=== PATIENT | male | born 1940 | race Caucasian/White ===

== ENCOUNTER 2017-11-11 21:47 | Inpatient (IN) | payer MEDICARE, BC ==
[2017-11-11 23:13] LABS: ADD MAN DIFF? NO
[2017-11-11 23:19] LABS: WHITE BLOOD COUNT 6.9 10^3/ul (4.8-10.8)
[2017-11-11 23:19] LABS: BASOPHILS % 0.6 % (0.0-2.0); EOSINOPHILS # 0.3 10^3/ul (0.0-0.5); EOSINOPHILS % 3.8 % (0.0-7.0); HEMATOCRIT 46.8 % (42.0-52.0); HEMOGLOBIN 16.1 g/dl (14.0-18.0); LYMPHOCYTES # 1.6 10^3/ul (0.8-2.9); LYMPHOCYTES % 23.1 % (15.0-51.0); MEAN CORPUSCULAR HGB CONC 34.4 g/dl (32.0-37.0); MEAN PLATELET VOLUME 10.1 fl (7.4-10.4); MONOCYTES % 14.7 % (0.0-11.0); NEUTROPHILS % 57.5 % (39.0-77.0); PLATELET COUNT 150 10^3/UL (140-415); RED BLOOD COUNT 5.03 10^6/ul (4.70-6.10); RED CELL DISTRIBUTION WIDTH 12.9 % (11.5-14.5)
[2017-11-11 23:40] LABS: PROTIME 13.3 Sec (11.9-14.9)
[2017-11-11 23:42] LABS: PARTIAL THROMBOPLASTIN TIME 35.4 Sec (25.0-35.0)
[2017-11-11 23:45] LABS: ADD UMIC NO; UR ASCORBIC ACID 20 mg/dL (NEGATIVE); UR BILIRUBIN (Dip) NEGATIVE (NEGATIVE); UR BLOOD (Dip) NEGATIVE (NEGATIVE); UR CLARITY CLEAR (CLEAR); UR COLOR STRAW (YELLOW); UR GLUCOSE (Dip) NEGATIVE (NEGATIVE); UR KETONES (Dip) NEGATIVE (NEGATIVE); UR LEUKOCYTE ESTERASE (Dip) NEGATIVE Leu/ul (NEGATIVE); UR NITRITE (Dip) NEGATIVE (NEGATIVE); UR SPECIFIC GRAVITY (Dip) 1.008 (1.003-1.030); UR TOTAL PROTEIN (Dip) NEGATIVE (NEGATIVE); UR UROBILINOGEN (Dip) NEGATIVE (NEGATIVE)
[2017-11-11 23:47] LABS: ANION GAP 13 (8-16); BLOOD UREA NITROGEN 25 mg/dl (7-20); CALCIUM 9.7 mg/dl (8.4-10.2); CARBON DIOXIDE 27 mmol/L (21-31); CHLORIDE 105 mmol/L (97-110); CHOLESTEROL 165 mg/dl (100-200); CREATININE 1.26 mg/dl (0.61-1.24); GLUCOSE 117 mg/dl (70-220); HDL CHOLESTEROL 33 mg/dl (31-75); LDL CHOLESTEROL,CALCULATED 86 mg/dl; POTASSIUM 3.7 mmol/L (3.5-5.1); SODIUM 141 mmol/L (135-144); TRIGLYCERIDES 231 mg/dl (0-149)
[2017-11-11 23:56] LABS: TROPONIN-I < 0.012 ng/ml (0.000-0.120)
[2017-11-12] LABS: AMPHETAMINE/METHAMPHETAMINE Negative (NEGATIVE); BARBITURATES Negative (NEGATIVE); BENZODIAZEPINES Negative (NEGATIVE); CANNABINOIDS Negative (NEGATIVE); COCAINE Negative (NEGATIVE); OPIATES Negative (NEGATIVE)
[2017-11-12] MEDS ORDERED: ACETAMINOPHEN 325 MG TAB PO (03:00)
[2017-11-12] MEDS ORDERED: ONDANSETRON 4 MG INJ IV (03:00)
[2017-11-12] MEDS: DOXYCYCLINE 100 MG TAB PO (08:57)
[2017-11-12] MEDS: DOCUSATE SODIUM 100 MG CAP PO ×2 (08:58→21:02)
[2017-11-12] MEDS: AMLODIPINE 5 MG TAB PO (08:58)
[2017-11-12] MEDS: CITALOPRAM 20 MG TAB PO (08:58)
[2017-11-12] MEDS: ASCORBIC ACID 500 MG TAB PO (08:58)
[2017-11-12] MEDS: BENAZEPRIL 40 MG TAB PO (08:59)
[2017-11-12] MEDS: DUTASTERIDE 0.5 MG CAP PO (10:51)
[2017-11-12] MEDS: CLOPIDOGREL 75 MG TAB PO (14:30)
[2017-11-12] MEDS: ROPINIROLE 1 MG TAB PO (21:02)
[2017-11-12] MEDS: RANITIDINE 150 MG TAB PO (21:02)
[2017-11-12] MEDS: ATORVASTATIN 10 MG TAB PO (21:02)
[2017-11-13 05:08] LABS: ADD MAN DIFF? NO
[2017-11-13 05:14] LABS: BASOPHILS % 0.6 % (0.0-2.0); EOSINOPHILS # 0.2 10^3/ul (0.0-0.5); EOSINOPHILS % 3.5 % (0.0-7.0); HEMOGLOBIN 15.2 g/dl (14.0-18.0); LYMPHOCYTES # 1.6 10^3/ul (0.8-2.9); LYMPHOCYTES % 22.9 % (15.0-51.0); MEAN CORPUSCULAR HEMOGLOBIN 31.7 pg (29.0-33.0); MEAN CORPUSCULAR HGB CONC 33.8 g/dl (32.0-37.0); MEAN CORPUSCULAR VOLUME 93.8 fl (82.0-101.0); MEAN PLATELET VOLUME 10.4 fl (7.4-10.4); MONOCYTE # 1.1 10^3/ul (0.3-0.9); MONOCYTES % 15.5 % (0.0-11.0); NEUTROPHIL # 3.9 10^3/ul (1.6-7.5); NEUTROPHILS % 57.2 % (39.0-77.0); PLATELET COUNT 141 10^3/UL (140-415); RED CELL DISTRIBUTION WIDTH 13.1 % (11.5-14.5)
[2017-11-13 05:14] LABS: WHITE BLOOD COUNT 6.8 10^3/ul (4.8-10.8)
[2017-11-13 05:48] LABS: ALANINE AMINOTRANSFERASE 37 IU/L (13-69); ALBUMIN 3.6 g/dl (3.3-4.9); ALBUMIN/GLOBULIN RATIO 1.33; ALKALINE PHOSPHATASE 64 IU/L (42-121); ANION GAP 12 (8-16); ASPARTATE AMINO TRANSFERASE 31 IU/L (15-46); BILIRUBIN,INDIRECT 0.5 mg/dl (0-1.1); BILIRUBIN,TOTAL 0.5 mg/dl (0.2-1.3); BLOOD UREA NITROGEN 26 mg/dl (7-20); CARBON DIOXIDE 28 mmol/L (21-31); CHLORIDE 107 mmol/L (97-110); CREATININE 1.04 mg/dl (0.61-1.24); GLUCOSE 109 mg/dl (70-220); POTASSIUM 4.1 mmol/L (3.5-5.1); SODIUM 143 mmol/L (135-144); TOTAL PROTEIN 6.3 g/dl (6.1-8.1)
[2017-11-13 06:50] LABS: FOLATE > 20.0 ng/ml (2.8-20.0)
[2017-11-13] MEDS: DUTASTERIDE 0.5 MG CAP PO (07:53)
[2017-11-13] MEDS: CITALOPRAM 20 MG TAB PO (07:54)
[2017-11-13] MEDS: ASCORBIC ACID 500 MG TAB PO (07:54)
[2017-11-13] MEDS: CLOPIDOGREL 75 MG TAB PO (07:54)
[2017-11-13] MEDS: BENAZEPRIL 40 MG TAB PO (07:54)
[2017-11-13] MEDS: DOCUSATE SODIUM 100 MG CAP PO ×2 (07:54→20:24)
[2017-11-13] MEDS: AMLODIPINE 5 MG TAB PO (07:54)
[2017-11-13] MEDS: DOXYCYCLINE 100 MG TAB PO (07:54)
[2017-11-13] MEDS: ROPINIROLE 1 MG TAB PO (20:24)
[2017-11-13] MEDS: RANITIDINE 150 MG TAB PO (20:24)
[2017-11-13] MEDS: ATORVASTATIN 10 MG TAB PO (20:24)
[2017-11-14] MEDS: CITALOPRAM 20 MG TAB PO (08:38)
[2017-11-14] MEDS: ASCORBIC ACID 500 MG TAB PO (08:38)
[2017-11-14] MEDS: CLOPIDOGREL 75 MG TAB PO (08:38)
[2017-11-14] MEDS: AMLODIPINE 5 MG TAB PO (08:39)
[2017-11-14] MEDS: DOXYCYCLINE 100 MG TAB PO (08:39)
[2017-11-14] MEDS: BENAZEPRIL 40 MG TAB PO (08:39)
[2017-11-14] MEDS: DOCUSATE SODIUM 100 MG CAP PO ×2 (08:39→20:43)
[2017-11-14] MEDS: DUTASTERIDE 0.5 MG CAP PO (08:42)
[2017-11-14] MEDS: ROPINIROLE 1 MG TAB PO (20:43)
[2017-11-14] MEDS: RANITIDINE 150 MG TAB PO (20:43)
== END 2017-11-14 22:15 | DRG 66 ==
LOC: E/R 21:47 → 6WM 11-12 02:37
DX: I63.9 Cerebral infarction, unspecified (principal); J44.9 Chronic obstructive pulmonary disease, unspecified; I10 Essential (primary) hypertension; F32.9 Major depressive disorder, single episode, unspecified; K21.9 Gastro-esophageal reflux disease without esophagitis; N40.0 Benign prostatic hyperplasia without lower urinary tract symptoms; E78.5 Hyperlipidemia, unspecified; R41.3 Other amnesia; G25.81 Restless legs syndrome; M48.061 Spinal stenosis, lumbar region without neurogenic claudication; E66.9 Obesity, unspecified; Z68.32 Body mass index [BMI] 32.0-32.9, adult; Z79.02 Long term (current) use of antithrombotics/antiplatelets; Z87.891 Personal history of nicotine dependence; Z86.73 Personal history of transient ischemic attack (TIA), and cerebral infarction without residual deficits
CPT/HCPCS: 36415; 70450; 70544; 70549; 70551; 71045; 80048; 80053; 80061; 80307; 81003; 82607; 82746; 82962; 83036; 84443; 84484; 85025; 85610; 85730; 92610; 93005; 93306; 93880; 95819; 97161; 97167; 99285-25

== ENCOUNTER 2017-11-14 22:00 | Inpatient (IN) | payer MEDICARE, BC ==
[2017-11-15] MEDS ORDERED: LACTULOSE 30ML CUP PO (03:30)
[2017-11-15] MEDS ORDERED: BISACODYL 10 MG SUPP PR (03:30)
[2017-11-15] MEDS ORDERED: MAGNESIUM HYDROXIDE 30ML CUP PO (03:30)
[2017-11-15] MEDS ORDERED: ACETAMINOPHEN 325 MG TAB PO (03:30)
[2017-11-15 05:59] LABS: ADD UMIC NO; UR ASCORBIC ACID 40 mg/dL (NEGATIVE); UR BILIRUBIN (Dip) NEGATIVE (NEGATIVE); UR BLOOD (Dip) NEGATIVE (NEGATIVE); UR CLARITY CLEAR (CLEAR); UR COLOR YELLOW (YELLOW); UR GLUCOSE (Dip) NEGATIVE (NEGATIVE); UR KETONES (Dip) NEGATIVE (NEGATIVE); UR LEUKOCYTE ESTERASE (Dip) NEGATIVE Leu/ul (NEGATIVE); UR NITRITE (Dip) NEGATIVE (NEGATIVE); UR SPECIFIC GRAVITY (Dip) 1.019 (1.003-1.030); UR TOTAL PROTEIN (Dip) NEGATIVE (NEGATIVE); UR UROBILINOGEN (Dip) NEGATIVE (NEGATIVE)
[2017-11-15] MEDS: DOXYCYCLINE 100 MG TAB PO (09:16)
[2017-11-15] MEDS: CLOPIDOGREL 75 MG TAB PO (09:16)
[2017-11-15] MEDS: DUTASTERIDE 0.5 MG CAP PO (09:16)
[2017-11-15] MEDS: DOCUSATE SODIUM 100 MG CAP PO ×2 (09:16→20:43)
[2017-11-15] MEDS: BENAZEPRIL 40 MG TAB PO (09:16)
[2017-11-15] MEDS: ASCORBIC ACID 500 MG TAB PO (09:17)
[2017-11-15] MEDS: AMLODIPINE 5 MG TAB PO (09:17)
[2017-11-15] MEDS: CITALOPRAM 20 MG TAB PO (09:17)
[2017-11-15] MEDS: RANITIDINE 150 MG TAB PO (20:40)
[2017-11-15] MEDS: ATORVASTATIN 10 MG TAB PO (20:40)
[2017-11-15] MEDS: ROPINIROLE 1 MG TAB PO (20:40)
[2017-11-15] MEDS: FISH OIL 1,000 MG CAP PO (20:40)
[2017-11-15] MEDS: SENNA TAB PO (20:43)
[2017-11-16] MEDS: FISH OIL 1,000 MG CAP PO ×3 (09:00→20:40)
[2017-11-16] MEDS: DOCUSATE SODIUM 100 MG CAP PO ×2 (09:00→20:40)
[2017-11-16] MEDS: CYANOCOBALAMIN 500 MCG TAB PO (09:00)
[2017-11-16] MEDS: DUTASTERIDE 0.5 MG CAP PO (09:18)
[2017-11-16] MEDS: DOXYCYCLINE 100 MG TAB PO (09:18)
[2017-11-16] MEDS: BENAZEPRIL 40 MG TAB PO (09:18)
[2017-11-16] MEDS: ASCORBIC ACID 500 MG TAB PO (09:18)
[2017-11-16] MEDS: CHOLECALCIFEROL 2,000 UNIT CAP PO (09:18)
[2017-11-16] MEDS: CLOPIDOGREL 75 MG TAB PO (09:20)
[2017-11-16] MEDS: CITALOPRAM 20 MG TAB PO (09:20)
[2017-11-16] MEDS: AMLODIPINE 5 MG TAB PO (09:20)
[2017-11-16] MEDS: ROPINIROLE 1 MG TAB PO (20:40)
[2017-11-16] MEDS: SENNA TAB PO (20:40)
[2017-11-16] MEDS: RANITIDINE 150 MG TAB PO (20:40)
[2017-11-16] MEDS: ATORVASTATIN 10 MG TAB PO (20:40)
[2017-11-16] MEDS: ZOLPIDEM 5 MG TAB PO (21:21)
[2017-11-17 06:20] LABS: ADD MAN DIFF? NO
[2017-11-17 06:30] LABS: BASOPHILS % 0.6 % (0.0-2.0); EOSINOPHILS # 0.2 10^3/ul (0.0-0.5); EOSINOPHILS % 3.4 % (0.0-7.0); HEMATOCRIT 46.3 % (42.0-52.0); HEMOGLOBIN 15.5 g/dl (14.0-18.0); LYMPHOCYTES # 1.3 10^3/ul (0.8-2.9); LYMPHOCYTES % 19.6 % (15.0-51.0); MEAN CORPUSCULAR HEMOGLOBIN 31.6 pg (29.0-33.0); MEAN CORPUSCULAR HGB CONC 33.5 g/dl (32.0-37.0); MEAN CORPUSCULAR VOLUME 94.3 fl (82.0-101.0); MEAN PLATELET VOLUME 10.3 fl (7.4-10.4); MONOCYTE # 0.9 10^3/ul (0.3-0.9); MONOCYTES % 14.1 % (0.0-11.0); PLATELET COUNT 158 10^3/UL (140-415); RED BLOOD COUNT 4.91 10^6/ul (4.70-6.10); RED CELL DISTRIBUTION WIDTH 13.3 % (11.5-14.5)
[2017-11-17 06:30] LABS: WHITE BLOOD COUNT 6.5 10^3/ul (4.8-10.8)
[2017-11-17 06:56] LABS: ALANINE AMINOTRANSFERASE 34 IU/L (13-69); ALBUMIN 3.9 g/dl (3.3-4.9); ALBUMIN/GLOBULIN RATIO 1.44; ALKALINE PHOSPHATASE 66 IU/L (42-121); ANION GAP 13 (8-16); ASPARTATE AMINO TRANSFERASE 27 IU/L (15-46); BILIRUBIN,INDIRECT 0.6 mg/dl (0-1.1); BILIRUBIN,TOTAL 0.6 mg/dl (0.2-1.3); BLOOD UREA NITROGEN 25 mg/dl (7-20); CALCIUM 9.1 mg/dl (8.4-10.2); CARBON DIOXIDE 24 mmol/L (21-31); CHLORIDE 109 mmol/L (97-110); CREATININE 0.91 mg/dl (0.61-1.24); GLUCOSE 103 mg/dl (70-220); MAGNESIUM 2.1 mg/dl (1.7-2.5); POTASSIUM 3.8 mmol/L (3.5-5.1); SODIUM 142 mmol/L (135-144); TOTAL PROTEIN 6.6 g/dl (6.1-8.1)
[2017-11-17] MEDS: DOXYCYCLINE 100 MG TAB PO (09:00)
[2017-11-17] MEDS: AMLODIPINE 5 MG TAB PO (09:01)
[2017-11-17] MEDS: CITALOPRAM 20 MG TAB PO (09:01)
[2017-11-17] MEDS: CYANOCOBALAMIN 500 MCG TAB PO (09:01)
[2017-11-17] MEDS: DOCUSATE SODIUM 100 MG CAP PO ×2 (09:01→21:21)
[2017-11-17] MEDS: ASCORBIC ACID 500 MG TAB PO (09:01)
[2017-11-17] MEDS: FISH OIL 1,000 MG CAP PO ×2 (09:01→21:21)
[2017-11-17] MEDS: BENAZEPRIL 40 MG TAB PO (09:01)
[2017-11-17] MEDS: DUTASTERIDE 0.5 MG CAP PO (09:02)
[2017-11-17] MEDS: CHOLECALCIFEROL 2,000 UNIT CAP PO (09:02)
[2017-11-17] MEDS: CLOPIDOGREL 75 MG TAB PO (09:02)
[2017-11-17] MEDS: SENNA TAB PO (21:00)
[2017-11-17] MEDS: ROPINIROLE 1 MG TAB PO (21:17)
[2017-11-17] MEDS: ATORVASTATIN 10 MG TAB PO (21:21)
[2017-11-17] MEDS: RANITIDINE 150 MG TAB PO (21:21)
[2017-11-18] MEDS: ZOLPIDEM 5 MG TAB PO ×2 (00:12→21:08)
[2017-11-18] MEDS: CYANOCOBALAMIN 500 MCG TAB PO (08:38)
[2017-11-18] MEDS: DOCUSATE SODIUM 100 MG CAP PO ×2 (08:39→21:09)
[2017-11-18] MEDS: BENAZEPRIL 40 MG TAB PO (08:39)
[2017-11-18] MEDS: FISH OIL 1,000 MG CAP PO ×2 (08:39→21:09)
[2017-11-18] MEDS: DUTASTERIDE 0.5 MG CAP PO (08:39)
[2017-11-18] MEDS: CLOPIDOGREL 75 MG TAB PO (08:39)
[2017-11-18] MEDS: ASCORBIC ACID 500 MG TAB PO (08:39)
[2017-11-18] MEDS: CITALOPRAM 20 MG TAB PO (08:39)
[2017-11-18] MEDS: AMLODIPINE 5 MG TAB PO (08:40)
[2017-11-18] MEDS: CHOLECALCIFEROL 2,000 UNIT CAP PO (08:54)
[2017-11-18] MEDS ORDERED: ZOLPIDEM 5 MG TAB PO (21:00)
[2017-11-18] MEDS: ROPINIROLE 1 MG TAB PO (21:09)
[2017-11-18] MEDS: ATORVASTATIN 10 MG TAB PO (21:09)
[2017-11-18] MEDS: SENNA TAB PO (21:09)
[2017-11-18] MEDS: RANITIDINE 150 MG TAB PO (21:09)
[2017-11-19] MEDS: ZOLPIDEM 5 MG TAB PO (01:14)
[2017-11-19] MEDS: FISH OIL 1,000 MG CAP PO ×2 (09:07→21:02)
[2017-11-19] MEDS: BENAZEPRIL 40 MG TAB PO (09:07)
[2017-11-19] MEDS: ASCORBIC ACID 500 MG TAB PO (09:07)
[2017-11-19] MEDS: CYANOCOBALAMIN 500 MCG TAB PO (09:08)
[2017-11-19] MEDS: CHOLECALCIFEROL 2,000 UNIT CAP PO (09:08)
[2017-11-19] MEDS: AMLODIPINE 5 MG TAB PO (09:08)
[2017-11-19] MEDS: CITALOPRAM 20 MG TAB PO (09:08)
[2017-11-19] MEDS: CLOPIDOGREL 75 MG TAB PO (09:08)
[2017-11-19] MEDS: DOCUSATE SODIUM 100 MG CAP PO ×2 (09:08→21:02)
[2017-11-19] MEDS: DUTASTERIDE 0.5 MG CAP PO (09:08)
[2017-11-19] MEDS: ROPINIROLE 1 MG TAB PO (21:02)
[2017-11-19] MEDS: SENNA TAB PO (21:02)
[2017-11-19] MEDS: RANITIDINE 150 MG TAB PO (21:02)
[2017-11-19] MEDS: ATORVASTATIN 10 MG TAB PO (21:02)
[2017-11-20] MEDS: FISH OIL 1,000 MG CAP PO ×2 (09:51→20:45)
[2017-11-20] MEDS: CITALOPRAM 20 MG TAB PO (09:51)
[2017-11-20] MEDS: DOCUSATE SODIUM 100 MG CAP PO ×2 (09:52→20:45)
[2017-11-20] MEDS: CLOPIDOGREL 75 MG TAB PO (09:52)
[2017-11-20] MEDS: AMLODIPINE 5 MG TAB PO (09:52)
[2017-11-20] MEDS: DUTASTERIDE 0.5 MG CAP PO (09:52)
[2017-11-20] MEDS: BENAZEPRIL 40 MG TAB PO (09:52)
[2017-11-20] MEDS: ASCORBIC ACID 500 MG TAB PO (09:52)
[2017-11-20] MEDS: CHOLECALCIFEROL 2,000 UNIT CAP PO (09:52)
[2017-11-20] MEDS: CYANOCOBALAMIN 500 MCG TAB PO (09:52)
[2017-11-20] MEDS: SENNA TAB PO (20:45)
[2017-11-20] MEDS: ROPINIROLE 1 MG TAB PO (20:45)
[2017-11-20] MEDS: RANITIDINE 150 MG TAB PO (20:45)
[2017-11-20] MEDS: ATORVASTATIN 10 MG TAB PO (20:45)
[2017-11-21 07:08] LABS: ALANINE AMINOTRANSFERASE 40 IU/L (13-69); ALBUMIN 3.5 g/dl (3.3-4.9); ALBUMIN/GLOBULIN RATIO 1.16; ALKALINE PHOSPHATASE 67 IU/L (42-121); ANION GAP 12 (8-16); ASPARTATE AMINO TRANSFERASE 26 IU/L (15-46); BILIRUBIN,INDIRECT 0.6 mg/dl (0-1.1); BILIRUBIN,TOTAL 0.6 mg/dl (0.2-1.3); BLOOD UREA NITROGEN 24 mg/dl (7-20); CALCIUM 9.1 mg/dl (8.4-10.2); CARBON DIOXIDE 27 mmol/L (21-31); CHLORIDE 107 mmol/L (97-110); CREATININE 1.02 mg/dl (0.61-1.24); GLUCOSE 104 mg/dl (70-220); SODIUM 142 mmol/L (135-144); TOTAL PROTEIN 6.5 g/dl (6.1-8.1)
[2017-11-21] MEDS: CYANOCOBALAMIN 500 MCG TAB PO (08:39)
[2017-11-21] MEDS: CHOLECALCIFEROL 2,000 UNIT CAP PO (08:39)
[2017-11-21] MEDS: ASCORBIC ACID 500 MG TAB PO (08:39)
[2017-11-21] MEDS: DUTASTERIDE 0.5 MG CAP PO (08:39)
[2017-11-21] MEDS: FISH OIL 1,000 MG CAP PO ×2 (08:39→20:06)
[2017-11-21] MEDS: BENAZEPRIL 40 MG TAB PO (08:39)
[2017-11-21] MEDS: AMLODIPINE 5 MG TAB PO (08:39)
[2017-11-21] MEDS: CLOPIDOGREL 75 MG TAB PO (08:39)
[2017-11-21] MEDS: DOCUSATE SODIUM 100 MG CAP PO ×2 (08:39→20:06)
[2017-11-21] MEDS: CITALOPRAM 20 MG TAB PO (08:40)
[2017-11-21] MEDS: RANITIDINE 150 MG TAB PO (20:06)
[2017-11-21] MEDS: SENNA TAB PO (20:06)
[2017-11-21] MEDS: ATORVASTATIN 20 MG TAB PO (20:06)
[2017-11-21] MEDS: ROPINIROLE 1 MG TAB PO (20:06)
[2017-11-22] MEDS: DUTASTERIDE 0.5 MG CAP PO (08:31)
[2017-11-22] MEDS: FISH OIL 1,000 MG CAP PO ×2 (08:31→20:48)
[2017-11-22] MEDS: DOCUSATE SODIUM 100 MG CAP PO ×2 (08:32→20:48)
[2017-11-22] MEDS: BENAZEPRIL 40 MG TAB PO (08:32)
[2017-11-22] MEDS: CYANOCOBALAMIN 500 MCG TAB PO (08:32)
[2017-11-22] MEDS: CHOLECALCIFEROL 2,000 UNIT CAP PO (08:32)
[2017-11-22] MEDS: CLOPIDOGREL 75 MG TAB PO (08:32)
[2017-11-22] MEDS: ASCORBIC ACID 500 MG TAB PO (08:32)
[2017-11-22] MEDS: CITALOPRAM 20 MG TAB PO (08:32)
[2017-11-22] MEDS: AMLODIPINE 5 MG TAB PO (08:32)
[2017-11-22] MEDS: SENNA TAB PO (20:48)
[2017-11-22] MEDS: ATORVASTATIN 20 MG TAB PO (20:48)
[2017-11-22] MEDS: RANITIDINE 150 MG TAB PO (20:48)
[2017-11-22] MEDS: ROPINIROLE 1 MG TAB PO (20:48)
[2017-11-23] MEDS: CHOLECALCIFEROL 2,000 UNIT CAP PO (08:40)
[2017-11-23] MEDS: ASCORBIC ACID 500 MG TAB PO (08:40)
[2017-11-23] MEDS: FISH OIL 1,000 MG CAP PO ×2 (08:41→21:14)
[2017-11-23] MEDS: DUTASTERIDE 0.5 MG CAP PO (08:41)
[2017-11-23] MEDS: CITALOPRAM 20 MG TAB PO (08:41)
[2017-11-23] MEDS: DOCUSATE SODIUM 100 MG CAP PO ×2 (08:41→21:14)
[2017-11-23] MEDS: BENAZEPRIL 40 MG TAB PO (08:41)
[2017-11-23] MEDS: AMLODIPINE 5 MG TAB PO (08:41)
[2017-11-23] MEDS: CYANOCOBALAMIN 500 MCG TAB PO (08:41)
[2017-11-23] MEDS: CLOPIDOGREL 75 MG TAB PO (08:41)
[2017-11-23] MEDS: SENNA TAB PO (21:00)
[2017-11-23] MEDS: ROPINIROLE 1 MG TAB PO (21:14)
[2017-11-23] MEDS: RANITIDINE 150 MG TAB PO (21:14)
[2017-11-23] MEDS: ATORVASTATIN 20 MG TAB PO (21:15)
[2017-11-24] MEDS: FISH OIL 1,000 MG CAP PO ×2 (08:34→21:37)
[2017-11-24] MEDS: CLOPIDOGREL 75 MG TAB PO (08:34)
[2017-11-24] MEDS: DOCUSATE SODIUM 100 MG CAP PO ×2 (08:34→21:37)
[2017-11-24] MEDS: CITALOPRAM 20 MG TAB PO (08:35)
[2017-11-24] MEDS: ASCORBIC ACID 500 MG TAB PO (08:35)
[2017-11-24] MEDS: CHOLECALCIFEROL 2,000 UNIT CAP PO (08:35)
[2017-11-24] MEDS: DUTASTERIDE 0.5 MG CAP PO (08:35)
[2017-11-24] MEDS: BENAZEPRIL 40 MG TAB PO (08:36)
[2017-11-24] MEDS: AMLODIPINE 5 MG TAB PO (08:36)
[2017-11-24] MEDS: CYANOCOBALAMIN 500 MCG TAB PO ×2 (09:00→17:49)
[2017-11-24] MEDS: SENNA TAB PO (21:00)
[2017-11-24] MEDS: RANITIDINE 150 MG TAB PO (21:37)
[2017-11-24] MEDS: ATORVASTATIN 40 MG TAB PO (21:37)
[2017-11-24] MEDS: ROPINIROLE 1 MG TAB PO (21:37)
[2017-11-25] MEDS: CITALOPRAM 20 MG TAB PO (09:21)
[2017-11-25] MEDS: DOCUSATE SODIUM 100 MG CAP PO (09:21)
[2017-11-25] MEDS: ASCORBIC ACID 500 MG TAB PO (09:21)
[2017-11-25] MEDS: CHOLECALCIFEROL 2,000 UNIT CAP PO (09:22)
[2017-11-25] MEDS: CLOPIDOGREL 75 MG TAB PO (09:22)
[2017-11-25] MEDS: CYANOCOBALAMIN 500 MCG TAB PO (09:22)
[2017-11-25] MEDS: DUTASTERIDE 0.5 MG CAP PO (09:22)
[2017-11-25] MEDS: FISH OIL 1,000 MG CAP PO (09:22)
[2017-11-25] MEDS: AMLODIPINE 5 MG TAB PO (09:22)
[2017-11-25] MEDS: BENAZEPRIL 40 MG TAB PO (09:23)
== END 2017-11-25 11:40 | disposition home health service (06) | DRG 57 ==
LOC: VRC 22:00
DX: I69.311 Memory deficit following cerebral infarction (principal); F33.1 Major depressive disorder, recurrent, moderate; F01.50 Vascular dementia, unspecified severity, without behavioral disturbance, psychotic disturbance, mood disturbance, and anxiety; I69.318 Other symptoms and signs involving cognitive functions following cerebral infarction; I10 Essential (primary) hypertension; J44.9 Chronic obstructive pulmonary disease, unspecified; N40.0 Benign prostatic hyperplasia without lower urinary tract symptoms; E78.5 Hyperlipidemia, unspecified; Z86.73 Personal history of transient ischemic attack (TIA), and cerebral infarction without residual deficits
CPT/HCPCS: 80053; 81003; 83735; 85025; 87081; 87086; 92507; 97110; 97112; 97116; 97163; 97530; 97535; 97542

== ENCOUNTER 2018-09-20 11:24 | Emergency (ER) | payer MEDICARE, BC ==
[2018-09-20] MEDS: KETOROLAC 30 MG INJ IM (12:28)
[2018-09-20] MEDS: traMADol 50 MG TAB PO (12:29)
== END 2018-09-20 15:37 | disposition home or self-care (01) ==
LOC: FTE 11:24
DX: S79.911A Unspecified injury of right hip, initial encounter (principal); I10 Essential (primary) hypertension; W01.0XXA Fall on same level from slipping, tripping and stumbling without subsequent striking against object, initial encounter; Y92.007 Garden or yard of unspecified non-institutional (private) residence as the place of occurrence of the external cause; Z79.02 Long term (current) use of antithrombotics/antiplatelets; Z86.73 Personal history of transient ischemic attack (TIA), and cerebral infarction without residual deficits; Z87.891 Personal history of nicotine dependence
CPT/HCPCS: 72170; 73510; 96372; 99284-25